=== PATIENT | male | born 2000 | race Caucasian/White ===

== ENCOUNTER 2020-08-25 13:03 | Emergency (ER) | payer SELFPAY ==
[~2020-08-25] VITALS: Ht 175.3 cm; Wt 65.0 kg
[2020-08-25 13:03] VITALS: BP 111/57
[2020-08-25] MEDS: IV NORMAL SALINE 1,000ML 1,000 ML IV ONE ×3 (13:43→14:27)
[2020-08-25 13:59] LABS: BASO % 0 % (0-3); EOS % 0 % (0-3); HEMATOCRIT 45.1 % (39.0-53.0); HEMOGLOBIN 15.4 g/dL (13.0-17.5); LYMPH # 1.1 x10^3/uL (1.0-4.8); LYMPH % 8 % (24-48); MEAN CORPUSCULAR HEMOGLOBIN 30 pg (25-35); MEAN CORPUSCULAR HGB CONC 34 g/dL (31-37); MEAN CORPUSCULAR VOLUME 88 fL (79-100); MONO # 0.4 x10^3/uL (0.0-1.1); MONO % 3 % (0-9); NEUT # 11.6 x10^3uL (1.8-7.7); NEUT % 89 % (31-73); PLATELET COUNT 162 x10^3/uL (140-400); RED BLOOD COUNT 5.11 x10^6/uL (4.30-5.70); RED CELL DISTRIBUTION WIDTH 14.1 % (11.5-14.5); WHITE BLOOD COUNT 13.1 x10^3/uL (4.0-11.0)
[2020-08-25 14:08] LABS: GFR 93.4; POTASSIUM 3.5 mmol/L (3.5-5.1)
--- NOTE | 2020-08-25 14:19 | PHYS DOC ---
Past History Past Medical History: No Pertinent History Past Surgical History: No Surgical History Alcohol Use: Occasionally Adult General Chief Complaint Chief Complaint: NAUSEA/VOMITING/DIARRHEA HPI HPI Patient is a 20-year-old male presenting for nausea and vomit. Onset was this morning at 3 AM. Reports he is healthy, no known medical issues and takes no medications on a daily basis. Reports last meal was yesterday evening approximately 6 hours prior, patient reports heating up leftover spaghetti and ate a frozen chimney [place]. Woke up at 3 AM as stated with generalized abdominal cramping mostly focal to left upper quadrant, nausea and has had numerous episodes of nonbloody nonbilious emesis ever since. Patient reports h aving difficulty tolerating p.o. intake prompting him to visit local urgent care in [place]. He was evaluated, given a total of 8 mg IM Zofran with strict return precautions to return to ER if he has any further episodes of emesis. Patient reports he walked outside, felt nauseous and had an episode of dry heaving prompting him to come to our facility for evaluation. He has had no fever, no chest pain, shortness of breath, ripping or tearing abdominal sensations, no dysuria, no testicular abnormalities or penile pain/discharge. Denies any recent sick contact or travel Review of Systems Review of Systems Fourteen body systems of review of systems have been reviewed. See HPI for pertinent positives and negative responses, other philip all other systems are negative, non-pertinent or non-contributory Current Medications Current Medications Current Medications Medications (Trade) Dose Ordered Sig/Jem Start Time Stop Time Status Last Admin Dose Admin Dicyclomine HCl (Bentyl) 10 mg 1X ONCE 08/25/20 14:15 08/25/20 14:16 UNV Pantoprazole Sodium (Protonix Vial) 40 mg 1X ONCE 08/25/20 14:00 08/25/20 14:01 DC Sodium Chloride 1,000 ml @ 1,000 mls/hr 1X ONCE 08/25/20 14:15 08/25/20 15:14 UNV Allergies Allergies Allergies Coded Allergies Type Severity Reaction Last Updated Verified No Known Drug Allergies 08/25/20 No Physical Exam Physical Exam Constitutional: Well developed, well nourished, no acute distress but appears uncomfortable and dehydrated, non-toxic appearance. HENT: Normocephalic, atraumatic, bilateral external ears normal, oropharynx moist, no oral exudates, nose normal. Eyes: PERRLA, EOMI, conjunctiva normal, no discharge. Neck: Normal range of motion, no tenderness, supple, no stridor. Cardiovascular: Heart rate regular, sinus rhythm, no murmurs rubs or gallops Lungs & Thorax: Bilateral breath sounds clear to auscultation Abdomen: Bowel sounds normal, soft, generalized left upper quadrant tenderness with palpation without rebound or guarding, no masses, no pulsatile masses. Nonsurgical abdomen, no peritoneal signs Skin: Warm, dry, no erythema, no rash. Back: No tenderness, no CVA tenderness. Extremities: No tenderness, no cyanosis, no clubbing, ROM intact, no edema. Neurologic: Alert and oriented X 3, grossly normal motor & sensory function, no focal deficits noted. Psychologic: Affect normal, judgement normal, mood normal. Current Patient Data Vital Signs Vital Signs Date Time Temp Pulse Resp B/P (MAP) Pulse Ox O2 Delivery O2 Flow Rate FiO2 08/25/20 13:03 98.3 58 16 111/57 (75) 100 Room Air Lab Results Laboratory Tests Test 08/25/20 13:38 White Blood Count 13.1 x10^3/uL (4.0-11.0) H Red Blood Count 5.11 x10^6/uL (4.30-5.70) Hemoglobin 15.4 g/dL (13.0-17.5) Hematocrit 45.1 % (39.0-53.0) Mean Corpuscular Volume 88 fL (79-100) Mean Corpuscular Hemoglobin 30 pg (25-35) Mean Corpuscular Hemoglobin Concent 34 g/dL (31-37) Red Cell Distribution Width 14.1 % (11.5-14.5) Platelet Count 162 x10^3/uL (140-400) Neutrophils (%) (Auto) 89 % (31-73) H Lymphocytes (%) (Auto) 8 % (24-48) L Monocytes (%) (Auto) 3 % (0-9) Eosinophils (%) (Auto) 0 % (0-3) Basophils (%) (Auto) 0 % (0-3) Neutrophils # (Auto) 11.6 x10^3uL (1.8-7.7) H Lymphocytes # (Auto) 1.1 x10^3/uL (1.0-4.8) Monocytes # (Auto) 0.4 x10^3/uL (0.0-1.1) Eosinophils # (Auto) 0.0 x10^3/uL (0.0-0.7) Basophils # (Auto) 0.0 x10^3/uL (0.0-0.2) Sodium Level 142 mmol/L (136-145) Potassium Level 3.5 mmol/L (3.5-5.1) Chloride Level 103 mmol/L (98-107) Carbon Dioxide Level 23 mmol/L (21-32) Anion Gap 16 (6-14) H Blood Urea Nitrogen 12 mg/dL (8-26) Creatinine 1.0 mg/dL (0.7-1.3) Estimated GFR (Cockcroft-Gault) 93.4 BUN/Creatinine Ratio 12 (6-20) Glucose Level 112 mg/dL (70-99) H Calcium Level 10.0 mg/dL (8.5-10.1) Total Bilirubin Pending Aspartate Amino Transferase (AST) Pending Alanine Aminotransferase (ALT) Pending Alkaline Phosphatase Pending Total Protein Pending Albumin Pending Albumin/Globulin Ratio Pending EKG EKG [] Radiology/Procedures Radiology/Procedures [] Heart Score C/O Chest Pain: No HEART Score for Chest Pain: HEART Score for Chest Pain Response (Comments) Value History Slighlty/Non-Suspicious 0 Age < 45 0 Risk Factors No Risk Factors 0 Total 0 Risk Factors: Risk Factors: DM, Current or recent (<one month) smoker, HTN, HLP, family history of CAD, obesity. Risk Scores: Risk Factors: DM, Current or recent (<one month) smoker, HTN, HLP, family history of CAD, obesity. Course & Med Decision Making Course & Med Decision Making Discussed with the patient all findings and diagnostic testing. I discussed most likely diagnosis of gastroenteritis versus other likely self-limiting intra- abdominal pathology. Patient responded to ER intervention that included IV fluid rehydration and Bentyl. Patient did have x1 episode of nonbloody nonbilious emesis while in ER but afterwards, reports he felt symptomatically much improved and requesting to go home. I reviewed discharge paperwork from prior urgent care visit, I agreed with their prescription for Zofran and continued supportive care practices such as eating a bland diet etc. Nonetheless, I stressed need for close outpatient follow-up to review today's ER visit. Strict return precautions were also discussed at length with good understanding by patient. Patient voiced understanding and agreement with the plan. Patient knows to come back for repeat evaluation if concerning signs or symptoms present prior to outpatient follow-up. Hemodynamically stable, ambulatory and well-appearing at time of disposition. Dragon Disclaimer Dragon Disclaimer This electronic medical record was generated, in whole or in part, using a voice recognition dictation system. Departure Departure: Impression: Primary Impression: Nausea & vomiting Disposition: HOME / SELF CARE / HOMELESS Condition: IMPROVED Referrals: [facility] (PCP) Patient Instructions: Nausea and Vomiting Additional Instructions: You were seen for nausea and vomiting. You most likely have a viral illness which should resolve in the next few days to a week. You were prescribed Zofran at urgent care prior to your arrival to our ER, I would use this as needed for nausea and take as instructed to on package label. Please continue good supportive care practices as discussed, eat a bland diet and do not jump into wild foods such as burritos and spicy wings in the near future. You should return to the ED if you develop abdominal pain, fever > 100.3, black/bloody stools, black/bloody vomiting, cannot keep water down, or any other new or concerning symptoms. PRETTY CHAVARRIA DO August 25, 2020 14:19
[2020-08-25 14:22] LABS: ALBUMIN 4.4 g/dL (3.4-5.0); TOTAL BILIRUBIN 0.6 mg/dL (0.2-1.0); TOTAL PROTEIN 8.7 g/dL (6.4-8.2)
[2020-08-25] MEDS: DICYCLOMINE HCL 20 MG TABLET PO ONE (14:26)
[2020-08-25] MEDS: PANTOPRAZOLE IV 40 MG VIAL. IVP ONE (14:26)
== END 2020-08-25 14:54 | disposition home or self-care (01) ==
LOC: ER 13:03
DX: R11.2 Nausea with vomiting, unspecified (principal); R10.84 Generalized abdominal pain; R10.12 Left upper quadrant pain
CPT/HCPCS: 36415; 80053; 85025; 96361; 96374; 99283; C9113; J7030